=== PATIENT | female | born 1980 | race Caucasian/White ===

== ENCOUNTER 2022-02-26 07:23 | Emergency (ER) | payer MEDICARE ==
[2022-02-26] MEDS ORDERED: Metoclopramide 10 MG Tab PO ONE (08:12)
[2022-02-26 09:14] LABS: CARBON DIOXIDE,CO2 22.1 mmol/L (21.0-32.0); POTASSIUM,K 3.6 mmol/L (3.5-5.1)
[2022-02-26] MEDS ORDERED: HYDROmorphone 2 MG/ML Syringe IM ONE (09:29)
== END 2022-02-26 10:44 | disposition home or self-care (01) ==
LOC: MW.ED 07:23
DX: K59.00 Constipation, unspecified (principal); R10.9 Unspecified abdominal pain; Z79.899 Other long term (current) drug therapy; Z88.0 Allergy status to penicillin; Z88.8 Allergy status to other drugs, medicaments and biological substances
CPT/HCPCS: 36415; 74176; 80053; 81003; 83690; 85025; 96372; 99284; A9270; J1170; 99283